=== PATIENT | female | born 1980 | race Caucasian/White ===

== ENCOUNTER 2017-12-20 18:37 | Observation (INO) ==
[2017-12-20] MEDS ORDERED: Isovue-370 500 ML INFUS..BTL IV ONE (19:22)
[2017-12-20 19:31] LABS: Bilirubin,Urine Negative (Negative); Blood,Urine Negative (Negative); Clarity,Urine Clear (Clear); Color,Urine Yellow (Yellow); Glucose,Urine (UA) Normal (Normal); Ketones,Urine Negative (Negative); Leukocyte Esterase,Urine Negative (Negative); Nitrite,Urine Negative (Negative); PH,Urine 5.5 pH Units (5.0-8.0); Protein,Urine Trace mg/dL (Neg-Trace); Specific Gravity,Urine > 1.030 (1.010-1.025); Urobilinogen,Urine Normal (Normal)
[2017-12-20 19:33] LABS: Bacteria,Urine Few per hpf (None-Few); Hyaline Casts,Urine None Seen per lpf (None-Few); RBC,Urine 0-3 per hpf (0-3); Squamous Epithelial Cell,Urine Many per lpf (None-Few)
[2017-12-20 19:40] LABS: Basophils % 0.3 %; Eosinophils # 0.2 K/mcL (0.0-0.6); Eosinophils % 1.4 %; Hematocrit 36.5 % (35.3-44.9); Hemoglobin 12.6 g/dL (11.5-15.4); Immature Granulocytes % 0.5 % (0-4); Lymphocytes % 18.2 %; Mean Corpuscular HGB Conc 34.5 g/dL (31.6-35.5); Mean Corpuscular Volume 86.9 fL (83.0-100.0); Mean Platelet Volume 10.9 fL (9.4-12.4); Monocytes # 0.8 K/mcL (0.0-1.3); Platelet Count 197 K/mcL (140-400); Red Cell Distribution Width 13.2 % (11.5-14.5); Segmented Neutrophils % 72.6 %
[2017-12-20] MEDS ORDERED: GI Cocktail 40 ML EACH PO ONE (19:51)
--- NOTE | 2017-12-20 19:51 | Emergency Department Note ---
Disposition Clinical Impression: Abdominal pain Qualifiers: Abdominal location: periumbilical Qualified Code(s): R10.33 - Periumbilical pain Disposition: Still a Patient Referrals: Jodie Gifford CNP [Primary Care Provider] - General Adult HPI - General Chief complaint: ED Abdominal Pain Stated complaint: ABD PAIN Time Seen by Provider: 12/20/17 18:53 Source: patient Limitations: no limitations - History of Present Illness Pain Scale: 10 - Related Data Home Medications Medication Instructions Recorded Confirmed Keflex 12/20/17 Omeprazole 12/20/17 Tramadol HCl 12/20/17 Zyrtec 12/20/17 Previous Rx's Medication Instructions Recorded SUMAtriptan succinate [Imitrex] 25 mg PO ONCE #5 tablet 10/06/17 Omeprazole 20 mg PO BID #20 tablet. 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 MACHINE TENDER history - Social History Smoking Status: Never smoker Smokeless Tobacco Status: No Alcohol use: Reports: none Drug use: Reports: none Physical Exam - General Limitations: no limitations General appearance: alert, in no apparent distress Course Vital Signs Temperature 98 F 12/20/17 18:47 Pulse Rate 88 12/20/17 18:47 Respiratory Rate 16 12/20/17 18:47 Blood Pressure 130/84 12/20/17 18:47 O2 Sat by Pulse Oximetry 98 12/20/17 18:47 Temperature 98 F 12/20/17 19:17 Pulse Rate 83 12/20/17 19:17 Respiratory Rate 16 12/20/17 19:17 Blood Pressure 122/87 12/20/17 19:17 O2 Sat by Pulse Oximetry 98 12/20/17 19:17 Oxygen Delivery Oxygen Delivery Room Air Medical Decision Making - Lab Data Result diagrams: 12/20/17 19:22 Lab Results 12/20/17 12/20/17 12/20/17 Range/Units 19:20 19:20 19:22 WBC 11.1 (4.3-11.1) K/mcL RBC 4.20 (3.82-4.97) M/mcL Hgb 12.6 (11.5-15.4) g/dL Hct 36.5 (35.3-44.9) % MCV 86.9 (83.0-100.0) fL MCH 30.0 (28.0-33.3) pg MCHC 34.5 (31.6-35.5) g/dL RDW 13.2 (11.5-14.5) % Plt Count 197 (140-400) K/mcL MPV 10.9 (9.4-12.4) fL Immature Gran % 0.5 (0-4) % Seg Neutrophils % 72.6 % Lymphocytes % 18.2 % Monocytes % 7.0 % Eosinophils % 1.4 % Basophils % 0.3 % Neutrophils # 8.0 (1.6-8.9) K/mcL Lymphocytes # 2.0 (0.6-4.6) K/mcL Monocytes # 0.8 (0.0-1.3) K/mcL Eosinophils # 0.2 (0.0-0.6) K/mcL Basophils # 0.0 (0.0-0.2) K/mcL Urine Color Yellow (Yellow) Urine Clarity Clear (Clear) Urine pH 5.5 (5.0-8.0) pH Units Ur Specific [place] > 1.030 H (1.010-1.025) Urine Protein Trace (Neg-Trace) mg/dL Urine Glucose (UA) Normal (Normal) mg/dL Urine Ketones Negative (Negative) mg/dL Urine Blood Negative (Negative) Urine Nitrite Negative (Negative) Urine Bilirubin Negative (Negative) Urine Urobilinogen Normal (Normal) mg/dL Ur Leukocyte Esterase Negative (Negative) Urine Microscopic RBC 0-3 (0-3) per hpf Urine Microscopic WBC 5-15 H (0-3) per hpf Ur Squamous Epith Cells Many H (None-Few) per lpf Urine Bacteria Few (None-Few) per hpf Hyaline Casts None Seen (None-Few) per lpf Ur Culture Indicated? NO (NO) Urine Test Negative (Negative) Attestation Statement - Attestation Attestation: I examined this patient and my medical decision-making was reviewed with the Resident Physician. I agree with the documented findings, disposition and treatment plan as described except to the extent set forth below. 37 year old female presents to the ED with complaints of abdominal pain and states that it is epigastric and umbilical in nature. Nitza states that it is otherwise nonradiating and is associated iwth nausea. She was originally seen at urgent care and treated with a GI cocktail and it helped for a little while and now it is back. Nitza denies vomtting or fevers or pain with uriantion. No chest pain or shortness of breath. We will continue workup with labs and ABCT and GI cocktail for therapy. Mutliplt eabodminla surgeries and concern for SBO but no peritoneal signs on exam. Nitza is nontoxic appearing with stable vitals.
[2017-12-20 19:54] LABS: Alanine Aminotransferase 31 Units/L (7-52); Albumin 4.2 g/dL (3.5-5.7); Albumin/Globulin Ratio 1.8 (1.1-2.2); Alkaline Phosphatase 37 Units/L (34-104); Amylase 31 Units/L (29-103); Aspartate Amino Transferase 20 Units/L (13-39); BUN/Creatinine Ratio 12 (6-26); Bilirubin,Direct 0.1 mg/dL (0.0-0.2); Bilirubin,Indirect 0.2 mg/dL (0.0-1.2); Bilirubin,Total 0.3 mg/dL (0.3-1.0); Blood Urea Nitrogen 10 mg/dL (6-20); Calcium 9.3 mg/dL (8.6-10.3); Carbon Dioxide 19 mEq/L (23-29); Chloride 109 mEq/L (98-107); Globulin 2.3 g/dL (2.4-3.5); Glucose 138 mg/dL (70-105); Lipase 12 Units/L (11-82); Osmolality,Calculated 289 (280-300); Potassium 3.8 mEq/L (3.5-5.1); Sodium 139 mEq/L (136-145); Total Protein 6.5 g/dL (6.4-8.9); eGFR For Non-African Americans > 60 (> 60)
--- NOTE | 2017-12-20 20:04 | Emergency Department Note ---
Disposition Clinical Impression: Abdominal pain Qualifiers: Abdominal location: periumbilical Qualified Code(s): R10.33 - Periumbilical pain Disposition: Still a Patient Referrals: Jodie Gifford CNP [Primary Care Provider] - Forms: ED Satisfaction Letter, Work/School Release Abdominal Pain HPI - General Chief Complaint: ED Abdominal Pain Stated Complaint: ABD PAIN Time Seen by Provider: 12/20/17 18:53 Source: patient Mode of arrival: private vehicle Limitations: no limitations Vital Signs Reviewed: Yes - History of Present Illness HPI Narrative: 37 yo F that presents with 4 days of abd pain that is intermittently both cramping and sharp in nature that doesn't radiate and in central abdominal. She admits to Nausea but denies Vomit, diarrhea and changes to her bowel or bladder. She is on 7/10 days of keflex for sinusitis. She denies fevers, chills , syncopal symptoms. Pain Scale: 10 - Related Data Home Medications Medication Instructions Recorded Confirmed Keflex 12/20/17 Omeprazole 12/20/17 Tramadol HCl 12/20/17 Zyrtec 12/20/17 Previous Rx's Medication Instructions Recorded SUMAtriptan succinate [Imitrex] 25 mg PO ONCE #5 tablet 10/06/17 Omeprazole 20 mg PO BID #20 tablet. 12/20/17 Ondansetron [Zofran] 8 mg PO Q8HR #12 tablet 12/20/17 Allergies Allergy/AdvReac Type Severity Reaction Status Date / Time clavulanic acid Allergy Rash Verified 12/20/17 17:34 [From Augmentin] Constitutional: Denies: fever, chills, weakness Cardiovascular: Denies: chest pain, palpitations, dyspnea on exertion, syncope Respiratory: Denies: cough, dyspnea Gastrointestinal: Reports: abdominal pain, nausea. Denies: vomiting, diarrhea Genitourinary: Denies: urgency, dysuria, frequency, hematuria Neurological: Denies: headache, weakness Endocrine: Denies: fatigue Abdominal Pain PMH - Past Medical History Medical history: Reports: non-contributory Female Surgical History: Reports: appendectomy, cholecystectomy SALESPERSON FURNITURE history: Reports: no SALESPERSON FURNITURE history Psychiatric history: Reports: no psych history - Social History Smoking status: Never smoker Alcohol use: Reports: none Drug use: Reports: none Physical Exam - General Limitations: no limitations General appearance: alert, in no apparent distress Course Vital Signs Temperature 98 F 12/20/17 18:47 Pulse Rate 88 12/20/17 18:47 Respiratory Rate 16 12/20/17 18:47 Blood Pressure 130/84 12/20/17 18:47 O2 Sat by Pulse Oximetry 98 12/20/17 18:47 Temperature 98 F 12/20/17 19:17 Pulse Rate 83 12/20/17 19:17 Respiratory Rate 16 12/20/17 19:17 Blood Pressure 122/87 12/20/17 19:17 O2 Sat by Pulse Oximetry 98 12/20/17 19:17 Oxygen Delivery Oxygen Delivery Room Air Abdominal Pain - Lab Data Result diagrams: 12/20/17 19:22 12/20/17 19:22 Lab Results 12/20/17 12/20/17 12/20/17 Range/Units 19:20 19:20 19:22 WBC 11.1 (4.3-11.1) K/mcL RBC 4.20 (3.82-4.97) M/mcL Hgb 12.6 (11.5-15.4) g/dL Hct 36.5 (35.3-44.9) % MCV 86.9 (83.0-100.0) fL MCH 30.0 (28.0-33.3) pg MCHC 34.5 (31.6-35.5) g/dL RDW 13.2 (11.5-14.5) % Plt Count 197 (140-400) K/mcL MPV 10.9 (9.4-12.4) fL Immature Gran % 0.5 (0-4) % Seg Neutrophils % 72.6 % Lymphocytes % 18.2 % Monocytes % 7.0 % Eosinophils % 1.4 % Basophils % 0.3 % Neutrophils # 8.0 (1.6-8.9) K/mcL Lymphocytes # 2.0 (0.6-4.6) K/mcL Monocytes # 0.8 (0.0-1.3) K/mcL Eosinophils # 0.2 (0.0-0.6) K/mcL Basophils # 0.0 (0.0-0.2) K/mcL Sodium (136-145) mEq/L Potassium (3.5-5.1) mEq/L Chloride (98-107) mEq/L Carbon Dioxide (23-29) mEq/L BUN (6-20) mg/dL Creatinine (0.60-1.20) mg/dL Est GFR ( Amer) (> 60) Est GFR (Non-Af Amer) (> 60) BUN/Creatinine Ratio (6-26) Glucose (70-105) mg/dL Calculated Osmolality (280-300) Calcium (8.6-10.3) mg/dL Total Bilirubin (0.3-1.0) mg/dL Direct Bilirubin (0.0-0.2) mg/dL Indirect Bilirubin (0.0-1.2) mg/dL AST (13-39) Units/L ALT (7-52) Units/L Alkaline Phosphatase (34-104) Units/L Serum Total Protein (6.4-8.9) g/dL Albumin (3.5-5.7) g/dL Globulin (2.4-3.5) g/dL Albumin/Globulin Ratio (1.1-2.2) Amylase (29-103) Units/L Lipase (11-82) Units/L Urine Color Yellow (Yellow) Urine Clarity Clear (Clear) Urine pH 5.5 (5.0-8.0) pH Units Ur Specific [place] > 1.030 H (1.010-1.025) Urine Protein Trace (Neg-Trace) mg/dL Urine Glucose (UA) Normal (Normal) mg/dL Urine Ketones Negative (Negative) mg/dL Urine Blood Negative (Negative) Urine Nitrite Negative (Negative) Urine Bilirubin Negative (Negative) Urine Urobilinogen Normal (Normal) mg/dL Ur Leukocyte Esterase Negative (Negative) Urine Microscopic RBC 0-3 (0-3) per hpf Urine Microscopic WBC 5-15 H (0-3) per hpf Ur Squamous Epith Cells Many H (None-Few) per lpf Urine Bacteria Few (None-Few) per hpf Hyaline Casts None Seen (None-Few) per lpf Ur Culture Indicated? NO (NO) Urine Test Negative (Negative) 12/20/17 Range/Units 19:22 WBC (4.3-11.1) K/mcL RBC (3.82-4.97) M/mcL Hgb (11.5-15.4) g/dL Hct (35.3-44.9) % MCV (83.0-100.0) fL MCH (28.0-33.3) pg MCHC (31.6-35.5) g/dL RDW (11.5-14.5) % Plt Count (140-400) K/mcL MPV (9.4-12.4) fL Immature Gran % (0-4) % Seg Neutrophils % % Lymphocytes % % Monocytes % % Eosinophils % % Basophils % % Neutrophils # (1.6-8.9) K/mcL Lymphocytes # (0.6-4.6) K/mcL Monocytes # (0.0-1.3) K/mcL Eosinophils # (0.0-0.6) K/mcL Basophils # (0.0-0.2) K/mcL Sodium 139 (136-145) mEq/L Potassium 3.8 (3.5-5.1) mEq/L Chloride 109 H (98-107) mEq/L Carbon Dioxide 19 L (23-29) mEq/L BUN 10 (6-20) mg/dL Creatinine 0.83 (0.60-1.20) mg/dL Est GFR ( Amer) > 60 (> 60) Est GFR (Non-Af Amer) > 60 (> 60) BUN/Creatinine Ratio 12 (6-26) Glucose 138 H (70-105) mg/dL Calculated Osmolality 289 (280-300) Calcium 9.3 (8.6-10.3) mg/dL Total Bilirubin 0.3 (0.3-1.0) mg/dL Direct Bilirubin 0.1 (0.0-0.2) mg/dL Indirect Bilirubin 0.2 (0.0-1.2) mg/dL AST 20 (13-39) Units/L ALT 31 (7-52) Units/L Alkaline Phosphatase 37 (34-104) Units/L Serum Total Protein 6.5 (6.4-8.9) g/dL Albumin 4.2 (3.5-5.7) g/dL Globulin 2.3 L (2.4-3.5) g/dL Albumin/Globulin Ratio 1.8 (1.1-2.2) Amylase 31 (29-103) Units/L Lipase 12 (11-82) Units/L Urine Color (Yellow) Urine Clarity (Clear) Urine pH (5.0-8.0) pH Units Ur Specific [place] (1.010-1.025) Urine Protein (Neg-Trace) mg/dL Urine Glucose (UA) (Normal) mg/dL Urine Ketones (Negative) mg/dL Urine Blood (Negative) Urine Nitrite (Negative) Urine Bilirubin (Negative) Urine Urobilinogen (Normal) mg/dL Ur Leukocyte Esterase (Negative) Urine Microscopic RBC (0-3) per hpf Urine Microscopic WBC (0-3) per hpf Ur Squamous Epith Cells (None-Few) per lpf Urine Bacteria (None-Few) per hpf Hyaline Casts (None-Few) per lpf Ur Culture Indicated? (NO) Urine Test (Negative)
--- NOTE | 2017-12-20 20:36 | Emergency Department Note ---
Disposition Clinical Impression: Acute appendicitis Disposition: Admitted As Inpatient Condition: Fair Referrals: Jodie Gifford CNP [Primary Care Provider] - Forms: ED Satisfaction Letter, Work/School Release Time of Disposition: 21:43 Abdominal Pain HPI - General Chief Complaint: ED Abdominal Pain Stated Complaint: ABD PAIN Time Seen by Provider: 12/20/17 18:53 Source: patient Mode of arrival: private vehicle Limitations: no limitations Nursing Notes Reviewed: Yes Vital Signs Reviewed: Yes - History of Present Illness HPI Narrative: Ms. Valdez is a 37-year-old female that presents to the ED for abdominal pain times 4 days. She states his pain has been consistent over the course. Describes pain as a cramping, burning pain with occasional sharp pains; located in central abdominal superior to umbilicus. No history of hernias. Does have history of GERD or which she takes omeprazole. Has also taken rolaids and motrin without relief. Nothing makes pain better, palpation makes pain worse. No recent travel, no new or raw foods, no sick contacts. Notes some intermittent dizziness. Denies vomiting, fevers, dysuria, hematuria, diarrhea. History of appendectomy and choleocystectomy approx 7 years ago. Does note uteran injury in [place] form IUD, pending US on 01/05/18. Pain Scale: 10 - Related Data Home Medications Medication Instructions Recorded Confirmed Keflex 12/20/17 Omeprazole 12/20/17 Tramadol HCl 12/20/17 Zyrtec 12/20/17 Previous Rx's Medication Instructions Recorded SUMAtriptan succinate [Imitrex] 25 mg PO ONCE #5 tablet 10/06/17 Omeprazole 20 mg PO BID #20 tablet. 12/20/17 Ondansetron [Zofran] 8 mg PO Q8HR #12 tablet 12/20/17 Allergies Allergy/AdvReac Type Severity Reaction Status Date / Time clavulanic acid Allergy Rash Verified 12/20/17 17:34 [From Augmentin] All systems ED: reviewed and negative except as stated. Review of Systems: As Per HPI Constitutional: Denies: fever, chills, weakness Cardiovascular: Denies: chest pain, palpitations, dyspnea on exertion, syncope Respiratory: Denies: cough, dyspnea Gastrointestinal: Reports: abdominal pain, nausea. Denies: vomiting, diarrhea Genitourinary: Denies: urgency, dysuria, frequency, hematuria Musculoskeletal: Denies: back pain Neurological: Reports: vertigo. 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 Absent: scleral icterus, conjunctival injection - ENT ENT exam: normal exam, normal oropharynx, mucous membranes moist - Neck Neck exam: Present: normal inspection, full ROM. Absent: tenderness - Chest Chest inspection: Present: normal inspection, symmetric chest wall rise - Respiratory Respiratory exam: Present: normal lung sounds bilaterally. Absent: respiratory distress, wheezes, accessory muscle use - Cardiovascular Cardiovascular exam: Present: regular rate, normal rhythm, +S1, +S2. Absent: systolic murmur, diastolic murmur - Abdominal Exam Abdominal exam: Present: soft, tenderness (epigastric and central abdominal pain with palpation.). Absent: distention, guarding, rebound - Extremities Exam Extremities exam: Present: normal inspection, full ROM. Absent: tenderness, pedal edema - Back Exam Back exam: Present: normal inspection. Absent: CVA tenderness (R), CVA tenderness (L) - Neurological Exam Neurological exam: Present: alert, oriented X3 - Psychiatric Psychiatric exam: Present: normal affect, normal mood - Skin Skin exam: Present: warm, dry, intact, normal color Course - Consultations Consultation #1: Discussed case with surgeon spoon maker, Dr. Schulte, who accepted patient for admission. Time: 21:40 Vital Signs Temperature 98 F 12/20/17 18:47 Pulse Rate 88 12/20/17 18:47 Respiratory Rate 16 12/20/17 18:47 Blood Pressure 130/84 12/20/17 18:47 O2 Sat by Pulse Oximetry 98 12/20/17 18:47 Temperature 98 F 12/20/17 19:17 Pulse Rate 89 12/20/17 20:59 Respiratory Rate 18 12/20/17 20:59 Blood Pressure 135/92 12/20/17 20:59 O2 Sat by Pulse Oximetry 99 12/20/17 20:59 Oxygen Delivery Oxygen Delivery Room Air Abdominal Pain - MDM Narrative Medical decision making narrative: Patient well appearing, nontoxic. Vitals stable. Will check UA, labs, and abd/ pelvic CT. Labs unremarkable, UA negative. CT abd/pelvis positive for acute appendicitis of the appendix stump. Case discussed with Dr. Schulte wo accepted patient for admission. - Differential Diagnosis Differential Diagnosis: Likely: acute appendicitis, gastroenteritis, hernia, , small bowel obstruction - Lab Data Lab results reviewed: Yes I reviewed the patient's lab results. Result diagrams: 12/20/17 19:22 12/20/17 19:22 Lab Results 12/20/17 12/20/17 12/20/17 Range/Units 19:20 19:20 19:22 WBC 11.1 (4.3-11.1) K/mcL RBC 4.20 (3.82-4.97) M/mcL Hgb 12.6 (11.5-15.4) g/dL Hct 36.5 (35.3-44.9) % MCV 86.9 (83.0-100.0) fL MCH 30.0 (28.0-33.3) pg MCHC 34.5 (31.6-35.5) g/dL RDW 13.2 (11.5-14.5) % Plt Count 197 (140-400) K/mcL MPV 10.9 (9.4-12.4) fL Immature Gran % 0.5 (0-4) % Seg Neutrophils % 72.6 % Lymphocytes % 18.2 % Monocytes % 7.0 % Eosinophils % 1.4 % Basophils % 0.3 % Neutrophils # 8.0 (1.6-8.9) K/mcL Lymphocytes # 2.0 (0.6-4.6) K/mcL Monocytes # 0.8 (0.0-1.3) K/mcL Eosinophils # 0.2 (0.0-0.6) K/mcL Basophils # 0.0 (0.0-0.2) K/mcL Sodium (136-145) mEq/L Potassium (3.5-5.1) mEq/L Chloride (98-107) mEq/L Carbon Dioxide (23-29) mEq/L BUN (6-20) mg/dL Creatinine (0.60-1.20) mg/dL Est GFR ( Amer) (> 60) Est GFR (Non-Af Amer) (> 60) BUN/Creatinine Ratio (6-26) Glucose (70-105) mg/dL Calculated Osmolality (280-300) Calcium (8.6-10.3) mg/dL Total Bilirubin (0.3-1.0) mg/dL Direct Bilirubin (0.0-0.2) mg/dL Indirect Bilirubin (0.0-1.2) mg/dL AST (13-39) Units/L ALT (7-52) Units/L Alkaline Phosphatase (34-104) Units/L Serum Total Protein (6.4-8.9) g/dL Albumin (3.5-5.7) g/dL Globulin (2.4-3.5) g/dL Albumin/Globulin Ratio (1.1-2.2) Amylase (29-103) Units/L Lipase (11-82) Units/L Urine Color Yellow (Yellow) Urine Clarity Clear (Clear) Urine pH 5.5 (5.0-8.0) pH Units Ur Specific [place] > 1.030 H (1.010-1.025) Urine Protein Trace (Neg-Trace) mg/dL Urine Glucose (UA) Normal (Normal) mg/dL Urine Ketones Negative (Negative) mg/dL Urine Blood Negative (Negative) Urine Nitrite Negative (Negative) Urine Bilirubin Negative (Negative) Urine Urobilinogen Normal (Normal) mg/dL Ur Leukocyte Esterase Negative (Negative) Urine Microscopic RBC 0-3 (0-3) per hpf Urine Microscopic WBC 5-15 H (0-3) per hpf Ur Squamous Epith Cells Many H (None-Few) per lpf Urine Bacteria Few (None-Few) per hpf Hyaline Casts None Seen (None-Few) per lpf Ur Culture Indicated? NO (NO) Urine Test Negative (Negative) 12/20/17 Range/Units 19:22 WBC (4.3-11.1) K/mcL RBC (3.82-4.97) M/mcL Hgb (11.5-15.4) g/dL Hct (35.3-44.9) % MCV (83.0-100.0) fL MCH (28.0-33.3) pg MCHC (31.6-35.5) g/dL RDW (11.5-14.5) % Plt Count (140-400) K/mcL MPV (9.4-12.4) fL Immature Gran % (0-4) % Seg Neutrophils % % Lymphocytes % % Monocytes % % Eosinophils % % Basophils % % Neutrophils # (1.6-8.9) K/mcL Lymphocytes # (0.6-4.6) K/mcL Monocytes # (0.0-1.3) K/mcL Eosinophils # (0.0-0.6) K/mcL Basophils # (0.0-0.2) K/mcL Sodium 139 (136-145) mEq/L Potassium 3.8 (3.5-5.1) mEq/L Chloride 109 H (98-107) mEq/L Carbon Dioxide 19 L (23-29) mEq/L BUN 10 (6-20) mg/dL Creatinine 0.83 (0.60-1.20) mg/dL Est GFR ( Amer) > 60 (> 60) Est GFR (Non-Af Amer) > 60 (> 60) BUN/Creatinine Ratio 12 (6-26) Glucose 138 H (70-105) mg/dL Calculated Osmolality 289 (280-300) Calcium 9.3 (8.6-10.3) mg/dL Total Bilirubin 0.3 (0.3-1.0) mg/dL Direct Bilirubin 0.1 (0.0-0.2) mg/dL Indirect Bilirubin 0.2 (0.0-1.2) mg/dL AST 20 (13-39) Units/L ALT 31 (7-52) Units/L Alkaline Phosphatase 37 (34-104) Units/L Serum Total Protein 6.5 (6.4-8.9) g/dL Albumin 4.2 (3.5-5.7) g/dL Globulin 2.3 L (2.4-3.5) g/dL Albumin/Globulin Ratio 1.8 (1.1-2.2) Amylase 31 (29-103) Units/L Lipase 12 (11-82) Units/L Urine Color (Yellow) Urine Clarity (Clear) Urine pH (5.0-8.0) pH Units Ur Specific [place] (1.010-1.025) Urine Protein (Neg-Trace) mg/dL Urine Glucose (UA) (Normal) mg/dL Urine Ketones (Negative) mg/dL Urine Blood (Negative) Urine Nitrite (Negative) Urine Bilirubin (Negative) Urine Urobilinogen (Normal) mg/dL Ur Leukocyte Esterase (Negative) Urine Microscopic RBC (0-3) per hpf Urine Microscopic WBC (0-3) per hpf Ur Squamous Epith Cells (None-Few) per lpf Urine Bacteria (None-Few) per hpf Hyaline Casts (None-Few) per lpf Ur Culture Indicated? (NO) Urine Test (Negative) - Radiology Data Radiology results reviewed: Yes I reviewed the patient's radiology results.
[2017-12-20] MEDS ORDERED: *HR* Promethazine 25 MG/ML VIAL IVP PRN (23:45)
[2017-12-20] MEDS ORDERED: Ondansetron 4 MG/2 ML VIAL IVP PRN (23:45)
[2017-12-20] MEDS ORDERED: Naloxone 0.4 MG/ML INJ IVP PRN (23:45)
[2017-12-20] MEDS ORDERED: Morphine Oral CONC 5 MG/0.25 ML ORAL.SYG PO PRN (23:47)
[2017-12-21] MEDS ORDERED: MORPHINE SUL Oral CONC 10 MG/0.5 ML ORAL.SYG PO PRN ×2 (00:30→16:47)
[2017-12-21] MEDS: MORPHINE SUL Oral CONC 10 MG/0.5 ML ORAL.SYG PO PRN ×4 (00:46→23:42)
[2017-12-21] MEDS: Piperacillin/Tazobactam 3.375 GM in 0.9 % Sodium Chloride Mini Bag 100 ML IVPB SCH ×3 (00:50→23:41)
[2017-12-21] MEDS: 0.9 % Sodium Chloride 1,000 ML IVC SCH ×3 (00:50→19:40)
[2017-12-21] MEDS ORDERED: *HR* Heparin 5,000 UNIT/ML VIAL SQ SCH (06:00)
[2017-12-21 06:13] LABS: Basophils % 0.3 %; Eosinophils # 0.2 K/mcL (0.0-0.6); Eosinophils % 1.5 %; Hematocrit 35.1 % (35.3-44.9); Hemoglobin 11.8 g/dL (11.5-15.4); Immature Granulocytes % 0.3 % (0-4); Lymphocytes # 2.1 K/mcL (0.6-4.6); Lymphocytes % 21.4 %; Mean Corpuscular HGB Conc 33.6 g/dL (31.6-35.5); Mean Corpuscular Hemoglobin 29.5 pg (28.0-33.3); Mean Corpuscular Volume 87.8 fL (83.0-100.0); Mean Platelet Volume 10.9 fL (9.4-12.4); Monocytes # 0.7 K/mcL (0.0-1.3); Neutrophils # 6.8 K/mcL (1.6-8.9); Platelet Count 184 K/mcL (140-400); Red Cell Distribution Width 13.2 % (11.5-14.5); Segmented Neutrophils % 69.5 %
[2017-12-21 06:36] LABS: BUN/Creatinine Ratio 10 (6-26); Blood Urea Nitrogen 8 mg/dL (6-20); Calcium 8.5 mg/dL (8.6-10.3); Carbon Dioxide 20 mEq/L (23-29); Chloride 109 mEq/L (98-107); Glucose 112 mg/dL (70-105); Osmolality,Calculated 285 (280-300); Potassium 3.4 mEq/L (3.5-5.1); Sodium 138 mEq/L (136-145); eGFR For Non-African Americans > 60 (> 60)
[2017-12-21] MEDS ORDERED: Pantoprazole 40 MG VIAL IVP SCH (09:00)
--- NOTE | 2017-12-21 09:50 | General Surg History&Physical ---
<Roebrt Hooks R - Last Filed: 12/21/17 09:42> Date of Encounter: 12/21/17 Time of Encounter: 08:30 Assessment and Plan (1) Acute appendicitis Status: Acute The assessment and plan as outlined above was discussed with the patient and/or family members who expressed understanding and agreement. All questions were answered. Patient was seen and evaluated at the bed side. Non-toxic in appearance, in no distress. CT abdomen findings consistent stump appendicitis Plan: NPO IV fluids Comfort care and pain management Antibiotics -Zosyn Plan for laparoscopic appendectomy today. Procedure was discussed with the patient at bedside and all questions answered. Risks and benefits were discussed. Patient would like to proceed with plan. Incentive spirometry Ambulate hallways TID with assistance prn antiemetic Consent signed and placed in hard chart Qualifiers: Acute appendicitis type: unspecified acute appendicitis type Qualified Code (s): K35.80 - Unspecified acute appendicitis (2) DVT prophylaxis Status: Acute The assessment and plan as outlined above was discussed with the patient and/or family members who expressed understanding and agreement. All questions were answered. Heparin EPCD's Ambulate TID History of Present Illness Chief complaint: abdominal pain HPI: Ms. Valdez is a 37 year old female with a history of Migraine headaches and GERD, presented to the ED overnight complaining of 4 days of abdominal pain. Pain is sharp and burning in quality, has been consistent. She was evaluated in the urgent center and was treated with a GI cocktail, which provided only temporary relief. Pain is centered around her umbilicus, does not radiate. Associated anorexia and nausea without vomiting. Denies fever, change in bowel habits, hematochezia, melena, hematemesis. CT of the abdomen was performed in the ED with findings consistent with stump appendicitis. She is able to ambulate and void without issue, denies urinary symptoms. Pain is currently controlled with medication. Prior abdominal surgeries include laparoscopic appendectomy and cholecystectomy. NPO since yesterday. Past Med Surg Social Fam HX - Past Medical History Medical history: non-contributory Psychiatric history: no psych history - Past Surgical History Surgical History: appendectomy, cholecystectomy - Social History Smoking Status: Never smoker Smokeless Tobacco Status: No Alcohol use: none Drug use: none Medications and Allergies Cetirizine HCl [Zyrtec] 10 mg PO DAILY 12/21/17 [History] EPINEPHrine [Epipen] 0.3 mg IM ONCE PRN 12/21/17 [History] Meloxicam [Mobic] 15 mg PO DAILY 12/21/17 [History] Montelukast [Singulair] 10 mg PO DAILY 12/21/17 [History] Norgestimate-Ethinyl Estradiol [Sprintec 28 Day Tablet] 1 tab PO DAILY 12/21/17 [History] Omeprazole [PriLOSEC] 40 mg PO DAILY 12/21/17 [History] Promethazine [Phenergan] 25 mg PO Q12H PRN 12/21/17 [History] SUMAtriptan succinate [Imitrex] 50 mg PO Q2H PRN 12/21/17 [History] Topiramate [Topamax] 50 mg PO BID 12/21/17 [History] Docusate [Colace] 100 mg PO BID #30 capsule 12/23/17 [Rx] Ibuprofen [Motrin] 800 mg PO Q8HR #50 tablet 12/23/17 [Rx] OxyCODONE/APAP 5/325 [Percocet 5/325 MG] 1 each PO Q4HR PRN 5 Days #20 tablet [Rx] 3 Allergy/AdvReac Type Severity Reaction Status Date / Time clavulanic acid Allergy Rash Verified 12/20/17 17:34 [From Augmentin] Review of Systems All systems PM: The remainder of the systems were reviewed and are negative - Constitutional no chills, no fever(s) - EENT Nose, mouth and throat: no dysphagia, no odynophagia - Cardiovascular no chest pain - Respiratory no cough, no dyspnea - Gastrointestinal abdominal pain, nausea, other (loss of appetite), no change in bowel habits, no constipation, no diarrhea, no hematemesis, no melena, no vomiting - Genitourinary Genitourinary: no dysuria, no urinary frequency General Surgery Exam Initial Vital Signs Temp Pulse Resp BP Pulse Ox 98 F 88 16 130/84 98 12/20/17 18:47 12/20/17 18:47 12/20/17 18:47 12/20/17 18:47 12/20/17 18:47 - General physical appearance well developed, well nourished, no distress, obese, other (mild pain) - Eyes PERRL, normal ocular movement - ENT normal mucosa, no congestion, atraumatic, normocephalic - Neck no masses, trachea midline, no venous distension - Respiratory normal expansion, clear to auscultation - Cardiovascular Cardiovascular exam: Present: RRR, no murmurs/rubs/gallops - Abdomen Abdomen general surgery: Present: bowel sounds present, soft, tender, surgical scars (well healed laparoscopy scars). Absent: distended, guarding, rebound Abdominal Tenderness: Present: epigastic, RLQ - Integumentary Integumentary general surgery: Present: warm and dry - Neurologic Present: CN 2-12 grossly intact - Musculoskeletal Present: normal gait, normal posture - Psychiatric Psychiatric general surgery: Present: A&Ox3, speech is normal, memory intact Results - Labs 12/21/17 05:48 12/21/17 05:48 Abnormal lab results Hct 35.1 % (35.3-44.9) L 12/21/17 05:48 Potassium 3.4 mEq/L (3.5-5.1) L 12/21/17 05:48 Chloride 109 mEq/L (98-107) H 12/21/17 05:48 Carbon Dioxide 20 mEq/L (23-29) L 12/21/17 05:48 Glucose 112 mg/dL (70-105) H 12/21/17 05:48 POC Glucose 112 mg/dL (70-99) H 12/21/17 05:12 Calcium 8.5 mg/dL (8.6-10.3) L 12/21/17 05:48 Globulin 2.3 g/dL (2.4-3.5) L 12/20/17 19:22 Ur Specific [place] > 1.030 (1.010-1.025) H 12/20/17 19:20 Urine Microscopic WBC 5-15 per hpf (0-3) H 12/20/17 19:20 Ur Squamous Epith Cells Many per lpf (None-Few) H 12/20/17 19:20 Diabetes panel 12/21/17 Range/Units 05:48 Sodium 138 (136-145) mEq/L Potassium 3.4 L (3.5-5.1) mEq/L Chloride 109 H (98-107) mEq/L Carbon Dioxide 20 L (23-29) mEq/L BUN 8 (6-20) mg/dL Creatinine 0.79 (0.60-1.20) mg/dL Glucose 112 H (70-105) mg/dL Calcium 8.5 L (8.6-10.3) mg/dL Calcium panel 12/21/17 Range/Units 05:48 Calcium 8.5 L (8.6-10.3) mg/dL Pituitary panel 12/21/17 Range/Units 05:48 Sodium 138 (136-145) mEq/L Potassium 3.4 L (3.5-5.1) mEq/L Chloride 109 H (98-107) mEq/L Carbon Dioxide 20 L (23-29) mEq/L BUN 8 (6-20) mg/dL Creatinine 0.79 (0.60-1.20) mg/dL Glucose 112 H (70-105) mg/dL Calcium 8.5 L (8.6-10.3) mg/dL Adrenal panel 12/21/17 Range/Units 05:48 Sodium 138 (136-145) mEq/L Potassium 3.4 L (3.5-5.1) mEq/L Chloride 109 H (98-107) mEq/L Carbon Dioxide 20 L (23-29) mEq/L BUN 8 (6-20) mg/dL Creatinine 0.79 (0.60-1.20) mg/dL Glucose 112 H (70-105) mg/dL Calcium 8.5 L (8.6-10.3) mg/dL All other labs normal. <Zoie Schulte - Last Filed: 12/23/17 18:17> Date of Encounter: 12/21/17 Assessment and Plan (1) Acute appendicitis Status: Resolved The assessment and plan as outlined above was discussed with the patient and/or family members who expressed understanding and agreement. All questions were answered. Discussed with the patient CT findings, history of laparoscopic appendectomy, lab work, physical exam. Per the CT she has a acute stump appendicitis. We will plan a laparoscopic appendectomy possible open, risks and benefits have been discussed with the patient and she wishes to proceed Nothing by mouth IV fluid hydration Antibiotics When necessary pain control When necessary antibiotics Qualifiers: Acute appendicitis type: unspecified acute appendicitis type Qualified Code (s): K35.80 - Unspecified acute appendicitis (2) Morbid obesity with BMI of 45.0-49.9, adult Status: Chronic The assessment and plan as outlined above was discussed with the patient and/or family members who expressed understanding and agreement. All questions were answered. History of Present Illness HPI: Ms. Valdez is a 37 year old female he states she has a 30 previously gone a laparoscopic appendectomy about 7-8 years ago here at [facility]. She has been having right lower quadrant and mid abdominal pain for the last few days. The pain is been sharp. She has also been having nausea and vomiting. No fevers, chills, night sweats. She denies any issues with diarrhea. She presented to the ED where a CT scan was done showing acute appendiceal stump appendicitis Past Med Surg Social Fam HX - Past Medical History Source: patient Medical history: other (Seasonal allergies, GERD, migraines) - Past Surgical History Surgical History: appendectomy (Laparoscopic), cholecystectomy (Laparoscopic) Review of Systems All systems PM: The remainder of the systems were reviewed and are negative General Surgery Exam Initial Vital Signs Temp Pulse Resp BP Pulse Ox 98 F 88 16 130/84 98 12/20/17 18:47 12/20/17 18:47 12/20/17 18:47 12/20/17 18:47 12/20/17 18:47 - General physical appearance well developed, well nourished, no distress, obese - Eyes PERRL, normal ocular movement - Abdomen Abdomen general surgery: Present: bowel sounds present, soft, tender Abdominal Tenderness: Present: RLQ - Integumentary Integumentary general surgery: Present: warm and dry. Absent: diaphoresis - Neurologic Present: CN 2-12 grossly intact Results - Labs 12/23/17 05:43 12/23/17 05:43 Abnormal lab results RBC 3.70 M/mcL (3.82-4.97) L 12/23/17 05:43 Hct 33.5 % (35.3-44.9) L 12/23/17 05:43 Chloride 112 mEq/L (98-107) H 12/23/17 05:43 Carbon Dioxide 20 mEq/L (23-29) L 12/23/17 05:43 POC Glucose 103 mg/dL (70-99) H 12/21/17 11:21 Calcium 7.8 mg/dL (8.6-10.3) L 12/23/17 05:43 Globulin 2.3 g/dL (2.4-3.5) L 12/20/17 19:22 Ur Specific [place] > 1.030 (1.010-1.025) H 12/20/17 19:20 Urine Microscopic WBC 5-15 per hpf (0-3) H 12/20/17 19:20 Ur Squamous Epith Cells Many per lpf (None-Few) H 12/20/17 19:20 Diabetes panel 12/23/17 Range/Units 05:43 Sodium 138 (136-145) mEq/L Potassium 4.0 (3.5-5.1) mEq/L Chloride 112 H (98-107) mEq/L Carbon Dioxide 20 L (23-29) mEq/L BUN 7 (6-20) mg/dL Creatinine 0.61 (0.60-1.20) mg/dL Glucose 90 (70-105) mg/dL Calcium 7.8 L (8.6-10.3) mg/dL Calcium panel 12/23/17 Range/Units 05:43 Calcium 7.8 L (8.6-10.3) mg/dL Pituitary panel 12/23/17 Range/Units 05:43 Sodium 138 (136-145) mEq/L Potassium 4.0 (3.5-5.1) mEq/L Chloride 112 H (98-107) mEq/L Carbon Dioxide 20 L (23-29) mEq/L BUN 7 (6-20) mg/dL Creatinine 0.61 (0.60-1.20) mg/dL Glucose 90 (70-105) mg/dL Calcium 7.8 L (8.6-10.3) mg/dL Adrenal panel 12/23/17 Range/Units 05:43 Sodium 138 (136-145) mEq/L Potassium 4.0 (3.5-5.1) mEq/L Chloride 112 H (98-107) mEq/L Carbon Dioxide 20 L (23-29) mEq/L BUN 7 (6-20) mg/dL Creatinine 0.61 (0.60-1.20) mg/dL Glucose 90 (70-105) mg/dL Calcium 7.8 L (8.6-10.3) mg/dL All other labs normal. - Imaging CT scan - abdomen: report reviewed, image reviewed CT scan - pelvis: report reviewed, image reviewed
[2017-12-21] MEDS ORDERED: *HR* Succinylcholine 200 MG/10 ML VIAL IVP ONE (12:06)
[2017-12-21] MEDS ORDERED: *HR* Rocuronium Bromide 50 MG/5 ML VIAL ONE (12:06)
[2017-12-21] MEDS ORDERED: Dexamethasone 4 MG/ML VIAL ONE (12:06)
[2017-12-21] MEDS ORDERED: Lidocaine -MPF 2% 2 ML VIAL ONE (12:06)
[2017-12-21] MEDS ORDERED: Lidocaine -MPF 4% 5 ML AMPUL ONE (12:06)
[2017-12-21] MEDS ORDERED: Ondansetron 4 MG/2 ML VIAL ONE (12:06)
[2017-12-21] MEDS ORDERED: *HR* Propofol 200 MG/20 ML VIAL IVP ONE (12:09)
[2017-12-21] MEDS ORDERED: *HR* FentaNYL (PF) 100 MCG/2 ML VIAL ONE (12:09)
--- NOTE | 2017-12-21 13:05 | Anesthesia Evaluation PreOp ---
Date of Encounter: 12/21/17 Time of Encounter: 13:02 - Past History Planned Operation: Appy re: stump appendicitis Pulmonary History: ELENO Dx (denies), Other (r) HEEL BUILDER MACHINE History: Other (MIgraines,) Other Medical History: GERD Anesthesia History: No Prior Anesthetic Complications, Past Anesthesia (Lap Appy , Sandra) Alcohol Use: none Drug use: none Medications and Allergies Cetirizine HCl [Zyrtec] 10 mg PO DAILY 12/21/17 [History] EPINEPHrine [Epipen] 0.3 mg IM ONCE PRN 12/21/17 [History] Meloxicam [Mobic] 15 mg PO DAILY 12/21/17 [History] Montelukast [Singulair] 10 mg PO DAILY 12/21/17 [History] Norgestimate-Ethinyl Estradiol [Sprintec 28 Day Tablet] 1 tab PO DAILY 12/21/17 [History] Omeprazole [PriLOSEC] 40 mg PO DAILY 12/21/17 [History] Promethazine [Phenergan] 25 mg PO Q12H PRN 12/21/17 [History] SUMAtriptan succinate [Imitrex] 50 mg PO Q2H PRN 12/21/17 [History] Topiramate [Topamax] 50 mg PO BID 12/21/17 [History] 3 Allergy/AdvReac Type Severity Reaction Status Date / Time clavulanic acid Allergy Rash Verified 12/20/17 17:34 [From Augmentin] - Meds/Allergy Pre-op Review Medications Reviewed: Yes Allergies Reviewed: Yes Beta Blockers on Current Med List: No Anesthesia Results - Labs 12/21/17 05:48 12/21/17 05:48 Laboratory Tests 03/26/14 12/20/17 12/21/17 19:17 19:20 05:48 PT 11.2 INR 1.1 Est GFR (Non-Af Amer) > 60 POC Glucose Urine Test Negative 12/21/17 11:21 PT INR Est GFR (Non-Af Amer) POC Glucose 103 H Urine Test Anesthesia Exam O2 Sat Height 1.6 m Height 1.6 m Height 1.6 m Weight 114.6 kg Weight 114.6 kg Weight 113.398 kg Weight 113.398 kg O2 Sat by Pulse Oximetry 98 O2 Sat by Pulse Oximetry 98 O2 Sat by Pulse Oximetry 97 O2 Sat by Pulse Oximetry 99 O2 Sat by Pulse Oximetry 98 O2 Sat by Pulse Oximetry 98 Vital Signs Temp Pulse Resp BP Pulse Ox 98 F 88 16 130/84 98 12/20/17 18:47 12/20/17 18:47 12/20/17 18:47 12/20/17 18:47 12/20/17 18:47 Height: 5'3" Weight: 252# BMI = 45 NPO (# of Hours): MNOc Pain Scale Used: Numeric (1 - 10) - HEENT Pupil (Motor): Pupils equal, EOMI Mallampati: III Teeth: Normal Oral Opening: Greater than 3 - HEEL BUILDER MACHINE LOC: Confused HEEL BUILDER MACHINE Motor: Normal RUE, Normal LUE, Normal RLE, Normal LLE, Normal Face HEEL BUILDER MACHINE Sensory: Normal: RUE, LUE, RLE, LLE, Face - Cardiac Rhythm: Regular Murmur: None - Pulmonary Breath Sounds: bilateral Clear Respiratory Effort: Symmetrical Anesthesia Assess/Plan ASA Score: 3 Modified Holman Scale for Level of Consciousness: Cooperative, oriented, and tranquil Anesthetic Plan: General Monitoring Plan: Standard Monitors Recovery Plan: PACU Anes Supervising Prov Stmt: PT seen/evaluated, R&B discussed, questions answered and consent obtained. Homer Anglin MD
[2017-12-21] MEDS ORDERED: Acetaminophen IV 1,000 MG/100 ML INFUS..BTL ONE (13:17)
[2017-12-21] MEDS ORDERED: Pregabalin 75 MG CAPSULE ONE (13:17)
[2017-12-21] MEDS ORDERED: *HR* Meperidine 25 MG/ML SYRINGE IVP PRN (14:03)
[2017-12-21] MEDS ORDERED: *HR* OxyCODONE Immed Rel 5 MG TABLET PO PRN (14:03)
[2017-12-21] MEDS ORDERED: *HR* Promethazine 25 MG/ML VIAL IVP PRN (14:03)
[2017-12-21] MEDS ORDERED: *HR* Labetalol 100 MG/20 ML MDV IVP PRN (14:03)
[2017-12-21] MEDS ORDERED: EPHEDrine 50 MG/ML VIAL ONE (14:23)
[2017-12-21] MEDS ORDERED: Neostigmine Methylsulfate 3 MG/3 ML SYRINGE ONE (14:49)
[2017-12-21] MEDS ORDERED: *HR* Morphine 10 MG/ML VIAL ONE (15:39)
--- NOTE | 2017-12-21 16:11 | Operative Note ---
Date of procedure: 12/21/17 Pre-op diagnosis: appendaceal stump appendicitis Post-op diagnosis: same Procedure: Laparoscopic appendectomy (stump) Complications: none immediate Anesthesia: VENANCIO local Surgeon: Zoie Schulte Was there an diver assistant present: No Plywood Stock Grader Other: Krzysztof Marshall Estimated blood loss (cc): 10 Specimen: appendix stump Condition: stable Disposition: PACU Procedure in Detail: A she was brought into the operating suite and placed supine on the operating table. Sign in was performed and everyone was in agreement. Anesthesia was induced the patient was endotracheally intubated by anesthesia without incident. The circulating nurse performed a straight catheter. The abdomen was prepped and draped in the usual sterile fashion. Timeout was performed again everyone was in agreement. A stab incision in the left upper quadrant was made with an 11 blade. A Veress needle was placed in this and water drop test confirmed placement and the abdomen was insufflated. We made a supra- umbilical incision with an 11 blade. Towel clips are placed on either side of umbilicus for retraction. We entered the abdomen with a 5 mm 0 degree laparoscope on a 5 mm XL trocar. The Veress needle was removed. A suprapubic 5 mm port was placed under direct visualization after first incising the skin with an 11 blade. The 5 mm super umbilical port was exchanged for a 10 mm port. A left lower quadrant 5 mm port was placed under direct visualization after first incising the skin with an 11 blade. The patient was placed in Trendelenburg left side down position. The tinea of the cecum were located. There was a collection of mucus at the distal cecum adjacent to logan that were seen lying against the cecum. The appendiceal stump was located and grasped with a laparoscopic [place]. Using the laparoscopic [place] and [place] the appendiceal stump was dissected off the cecum. The appendiceal stump was adherent to the fat of the distal cecum. The appendiceal stump was able to be removed off the cecal fat with gentle blunt dissection and the scissors. The appendix stump was placed no laparoscopic Endo Catch bag and removed via the umbilical incision. The appendiceal stump was evaluated and the proximal and was opened and the lumen was present that there were also logan that were adherent to the proximal end of the appendix. Evaluation of the cecum noted no obvious appendiceal lumen to the cecum. The right lower quadrant was irrigated with sterile saline. A senior surgical partner was called to the operating table to evaluate the cecum as well and further exam of the cecum demonstrated no obvious lumen. A 19-[place] Oneal drain was placed through the left lower quadrant port site, secured to the skin with a 2-0 silk stitch, and placed along the face of the cecum. The patient tolerated the procedure well. All lap and instrument counts are correct at the end of the case. All 3 port sites were removed. The abdominal wall the supraumbilical incision site was closed with a 0 Vicryl [id number] stitch. 30 mL of 0.5% Marcaine were injected at the 3 port sites subcutaneously. The suprapubic skin incision was closed with a 4-0 Monocryl interrupted subcuticular stitch. The skin at the supraumbilical incision was closed with a 4-0 Monocryl running subcuticular stitch. Mastisol and Steri-Strips were applied to the wounds as dressings. Drain sponge was placed at the Oneal drain site and secured with tape. Patient was awoken by anesthesia and taken to PACU in stable condition.
--- NOTE | 2017-12-21 16:37 | Anesthesia Evaluation Post Op ---
Date of Encounter: 12/21/17 Time of Encounter: 16:36 - Vital Signs Vital Signs: Vital Signs/O2 Sat/Glucose, Most Recent Temp Pulse Resp BP Pulse Ox 99.9 F H 81 16 100/63 99 12/21/17 16:00 12/21/17 16:20 12/21/17 16:20 12/21/17 16:20 12/21/17 16:20 Blood Glucose* 103 - Lungs Lungs: Clear Ascult./Percussion - Airway Airway: Non-obstructed - Cardiovascular Regular Rate - Mental Status Mental Status: Alert & Oriented, Answers Appropriately - Pain Pain Scale: 3 Pain Scale used: Numeric (1 - 10) - Nausea Vomiting Nausea Vomiting: Not Present - Hydration Hydration: NPO - Discharge PostOp Status: Transfer Patient to floor
[2017-12-21] MEDS ORDERED: Naloxone 0.4 MG/ML INJ IVP PRN (16:47)
[2017-12-21] MEDS ORDERED: Ondansetron 4 MG/2 ML VIAL IVP PRN (16:47)
[2017-12-21] MEDS ORDERED: SUMAtriptan succinate 50 MG TABLET PO PRN (16:47)
[2017-12-21] MEDS: Topiramate 25 MG TABLET PO SCH (23:34)
[2017-12-21] MEDS: *HR* Heparin 5,000 UNIT/ML VIAL SQ SCH (23:34)
[2017-12-22] MEDS: *HR* OxyCODONE/APAP 5/325 TABLET PO PRN ×4 (04:26→20:37)
[2017-12-22] MEDS: *HR* Heparin 5,000 UNIT/ML VIAL SQ SCH ×2 (04:26→16:53)
[2017-12-22 05:54] LABS: Basophils % 0.2 %; Eosinophils # 0.1 K/mcL (0.0-0.6); Eosinophils % 0.6 %; Hematocrit 34.7 % (35.3-44.9); Hemoglobin 11.3 g/dL (11.5-15.4); Immature Granulocytes % 0.4 % (0-4); Lymphocytes # 1.9 K/mcL (0.6-4.6); Lymphocytes % 17.4 %; Mean Corpuscular HGB Conc 32.6 g/dL (31.6-35.5); Mean Corpuscular Hemoglobin 29.1 pg (28.0-33.3); Mean Corpuscular Volume 89.4 fL (83.0-100.0); Mean Platelet Volume 11.1 fL (9.4-12.4); Monocytes # 0.6 K/mcL (0.0-1.3); Monocytes % 5.3 %; Neutrophils # 8.3 K/mcL (1.6-8.9); Platelet Count 184 K/mcL (140-400); Red Blood Count 3.88 M/mcL (3.82-4.97); Red Cell Distribution Width 13.4 % (11.5-14.5); Segmented Neutrophils % 76.1 %
[2017-12-22] MEDS: Piperacillin/Tazobactam 3.375 GM in 0.9 % Sodium Chloride Mini Bag 100 ML IVPB SCH ×3 (08:51→16:46)
[2017-12-22] MEDS: 0.9 % Sodium Chloride 1,000 ML IVC SCH ×2 (08:51→10:07)
[2017-12-22] MEDS: Topiramate 25 MG TABLET PO SCH ×2 (08:57→20:38)
[2017-12-22] MEDS: NORGESTIMATE ETHINYL ESTRADIOL PO SCH (08:57)
[2017-12-22] MEDS: Loratadine 10 MG TABLET PO SCH (08:58)
[2017-12-22] MEDS: Pantoprazole 40 MG VIAL IVP SCH (09:08)
[2017-12-22] MEDS: MORPHINE SUL Oral CONC 10 MG/0.5 ML ORAL.SYG PO PRN (10:07)
--- NOTE | 2017-12-22 11:43 | General Surgery Progress Note ---
<Maria Antonia Bar - Last Filed: 12/22/17 11:41> Date of Encounter: 12/22/17 Time of Encounter: 11:30 - Assessment and Plan (1) Acute appendicitis Status: Acute POD #1 Laparoscopic appendectomy (stump) with Dr. Schulte Pathology pending Advance to soft diet Continue ABDIRAHMAN drain Continue IV antibiotics- Zosyn Supportive care and pain control- added ibuprofen IS every 1 hour while awake PPI therapy daily Increase activity as tolerated Daily incision and drain care Repeat am labs- CBC, BMP Qualifiers: Acute appendicitis type: unspecified acute appendicitis type Qualified Code (s): K35.80 - Unspecified acute appendicitis (2) Morbid obesity with BMI of 45.0-49.9, adult Status: Chronic (3) DVT prophylaxis Status: Acute Ambulate hallways TID with assistance Heparin 5,000 units SQ twice daily for DVT prophylaxis Subjective Patient reports: still having pain (post-operative- no well controlled per patient), tolerating liquids well, voiding w/o difficulty, flatus, no bowel movement, afebrile, other (Patient states that she is "starving for food") Objective Vital Signs - Last 8 Hours Temp Pulse Resp BP Pulse Ox 12/22/17 10:35 98.6 F 85 16 119/71 97 12/22/17 06:56 98.6 F 78 17 108/70 97 12/22/17 04:32 97.8 F 77 16 113/70 97 Intake and Output 12/21/17 12/22/17 12/22/17 23:59 07:59 15:59 Intake Total 1420 / 1420 2099 / 2099 Output Total 70 / 70 1325 / 1325 215 / 215 Balance -70 / -70 95 / 95 1885 / 1885 Intake: IV Fluids 100 / 100 2099 / 2099 0.9 % Sodium Chloride 1,000 ML 1000 / 1000 @ 50 mls/hr IVC .Q20H CADEN Rx#: [id number] Zosyn 3.375 GM In 0.9 % Sodium 100 / 100 Chloride (Mini-Bag +) 100 ML @ 25 mls/hr IVPB Q8HR CADEN Rx#: [id number] Oral 1320 / 1320 Output: Urine 1300 / 1300 200 / 200 Wound Drainage 70 / 70 25 / 25 15 / 15 Left Lower Abdomen 30 / 30 25 / 25 15 / 15 Other: Meal clears Percent of Meal Consumed 95% Weight 116 kg Patient Weight 12/22/17 23:59 Weight 116 kg - General physical appearance well developed, well nourished, no distress - Eyes normal ocular movement - ENT normal mucosa, atraumatic, normocephalic - Neck Neck exam: trachea midline - Respiratory normal respiratory effort, clear to auscultation - Cardiovascular Cardiovascular exam: Present: RRR - Abdomen Abdomen: Present: bowel sounds present, soft, tender (Expected postoperative tenderness), wound (ABDIRAHMAN drain with serousang. drainage noted (110ml noted since surgery)) - Incision Incision: Present: clean and dry, intact - Neurologic CN 2-12 grossly intact - Psychiatric oriented to time, oriented to person, oriented to place, speech is normal, memory intact - Labs 12/22/17 05:08 12/21/17 05:48 - VTE Documentation of Mechanical Device: Intermittent pneumatic compression device Consult Discharge Plan - Plan Additional Instructions: General Surgical Discharge Instructions 1. No pushing, pulling, or lifting greater than 15 lbs for 2 weeks 2. You may shower beginning today, but no tub baths, soaking, or swimming for 2 weeks. 3. You may resume driving when you are off narcotics and are safe to react in a car. 4. Take ibuprofen every 8 hours for discomfort. If this does not relieve discomfort, you may take the as needed Percocet. Take narcotics as directed. Do not take more narcotics then directed and do not share your narcotics with any other person. Do not drink alcohol while on narcotics. 5. Take stool softeners (Colace) or a water based laxative (Miralax) while taking narcotics. You may hold for loose stools. 6. Report any fevers greater than 100.5F, increase abdominal discomfort, drainage that looks like pus, increased redness or pain at the surgical site, or any vomiting. 7. Report any pain in the calves, shortness of breath, or rapid heartbeat. 8. Follow-up in the office as directed. 9. If you were prescribed antibiotics, do not stop them without talking to your provider. 10. Follow a low residue diet until directed otherwise. Drain care- cleanse around drain with soap and water in the shower daily, pat dry. Apply clean split 4 x 4 gauze and tape to secure daily. Record outputs on drain record and bring to follow-up appointment next week. Referrals: Abril Tobias CNP [Advanced Practice Nurse] - 12/28/17 3:15 pm (surgery follow -up) Jodie Gifford CNP [Primary Care Provider] - Prescriptions: OxyCODONE/APAP 5/325 [Percocet 5/325 MG] 1 each PO Q4HR PRN 5 Days #20 tablet PRN Reason: Pain Ibuprofen [Motrin] 800 mg PO Q8HR #50 tablet Docusate [Colace] 100 mg PO BID #30 capsule - Attending Attestation For this encounter, I have reviewed the ELECTRICAL WIRING LINEMAN or PA documentation, treatment plan, and medical decision making; and I have had face to face time with this patient. <Zoie Schulte - Last Filed: 12/23/17 18:19> Date of Encounter: 12/22/17 - Assessment and Plan (1) Acute appendicitis Status: Resolved Patient is status post laparoscopic appendectomy for stump appendicitis. She is tolerating clear diet, advance. Continue antibiotics area and ABDIRAHMAN drain is serosanguineous output. When necessary pain control. Ambulate. Qualifiers: Acute appendicitis type: unspecified acute appendicitis type Qualified Code (s): K35.80 - Unspecified acute appendicitis (2) Morbid obesity with BMI of 45.0-49.9, adult Status: Chronic Subjective Patient reports: no new complaints, still having pain, pain is less, tolerating liquids well, flatus, no bowel movement Objective Vital Signs - Last 8 Hours Temp Pulse Resp BP Pulse Ox 12/23/17 14:04 98.8 F 93 16 117/81 97 12/23/17 11:33 97.9 F 75 16 142/81 95 Intake and Output 12/23/17 12/23/17 12/23/17 07:59 15:59 23:59 Intake Total 1100 / 1100 120 / 120 Output Total 400 / 400 420 / 420 Balance 700 / 700 -300 / -300 Intake: IV Fluids 1100 / 1100 0.9 % Sodium Chloride 1,000 ML 1000 / 1000 @ 50 mls/hr IVC .Q20H CADEN Rx#: [id number] Zosyn 3.375 GM In 0.9 % Sodium 100 / 100 Chloride (Mini-Bag +) 100 ML @ 25 mls/hr IVPB Q8HR CADEN Rx#: [id number] Oral 120 / 120 Output: Urine 400 / 400 400 / 400 Wound Drainage Left Lower Abdomen Other: Weight 117.2 kg Patient Weight 12/23/17 23:59 Weight 117.2 kg - General physical appearance well developed, well nourished, no distress - ENT normal mucosa, normocephalic - Neck Neck exam: trachea midline - Respiratory normal expansion, normal respiratory effort - Cardiovascular Cardiovascular exam: Present: RRR - Abdomen Abdomen: Present: bowel sounds present, soft, tender - Incision Incision: Present: clean and dry, intact - Integumentary no rash - Neurologic CN 2-12 grossly intact - Musculoskeletal normal posture - Psychiatric oriented to time, oriented to person, oriented to place, speech is normal, memory intact - Labs 12/23/17 05:43 12/23/17 05:43 Diabetes panel 12/23/17 Range/Units 05:43 Sodium 138 (136-145) mEq/L Potassium 4.0 (3.5-5.1) mEq/L Chloride 112 H (98-107) mEq/L Carbon Dioxide 20 L (23-29) mEq/L BUN 7 (6-20) mg/dL Creatinine 0.61 (0.60-1.20) mg/dL Glucose 90 (70-105) mg/dL Calcium 7.8 L (8.6-10.3) mg/dL Calcium panel 12/23/17 Range/Units 05:43 Calcium 7.8 L (8.6-10.3) mg/dL Pituitary panel 12/23/17 Range/Units 05:43 Sodium 138 (136-145) mEq/L Potassium 4.0 (3.5-5.1) mEq/L Chloride 112 H (98-107) mEq/L Carbon Dioxide 20 L (23-29) mEq/L BUN 7 (6-20) mg/dL Creatinine 0.61 (0.60-1.20) mg/dL Glucose 90 (70-105) mg/dL Calcium 7.8 L (8.6-10.3) mg/dL Adrenal panel 12/23/17 Range/Units 05:43 Sodium 138 (136-145) mEq/L Potassium 4.0 (3.5-5.1) mEq/L Chloride 112 H (98-107) mEq/L Carbon Dioxide 20 L (23-29) mEq/L BUN 7 (6-20) mg/dL Creatinine 0.61 (0.60-1.20) mg/dL Glucose 90 (70-105) mg/dL Calcium 7.8 L (8.6-10.3) mg/dL - Attending Attestation I have personally performed a face to face evaluation on this patient. I have reviewed and agree with the care plan. History and Exam by me shows:
[2017-12-22] MEDS: Ibuprofen 800 MG TABLET PO SCH ×2 (13:07→16:46)
[2017-12-23] MEDS: Ibuprofen 800 MG TABLET PO SCH ×2 (00:04→08:50)
[2017-12-23] MEDS: Piperacillin/Tazobactam 3.375 GM in 0.9 % Sodium Chloride Mini Bag 100 ML IVPB SCH ×2 (00:04→08:51)
[2017-12-23] MEDS: 0.9 % Sodium Chloride 1,000 ML IVC SCH (05:31)
[2017-12-23] MEDS: *HR* Heparin 5,000 UNIT/ML VIAL SQ SCH (05:35)
[2017-12-23 06:26] LABS: Basophils % 0.4 %; Eosinophils # 0.2 K/mcL (0.0-0.6); Eosinophils % 3.1 %; Hematocrit 33.5 % (35.3-44.9); Hemoglobin 11.7 g/dL (11.5-15.4); Immature Granulocytes % 0.4 % (0-4); Lymphocytes # 2.2 K/mcL (0.6-4.6); Lymphocytes % 28.7 %; Mean Corpuscular HGB Conc 34.9 g/dL (31.6-35.5); Mean Corpuscular Hemoglobin 31.6 pg (28.0-33.3); Mean Corpuscular Volume 90.5 fL (83.0-100.0); Mean Platelet Volume 11.3 fL (9.4-12.4); Monocytes # 0.7 K/mcL (0.0-1.3); Monocytes % 8.6 %; Neutrophils # 4.6 K/mcL (1.6-8.9); Platelet Count 190 K/mcL (140-400); Red Cell Distribution Width 13.5 % (11.5-14.5); Segmented Neutrophils % 58.8 %
[2017-12-23 07:52] LABS: BUN/Creatinine Ratio 11 (6-26); Blood Urea Nitrogen 7 mg/dL (6-20); Calcium 7.8 mg/dL (8.6-10.3); Carbon Dioxide 20 mEq/L (23-29); Chloride 112 mEq/L (98-107); Glucose 90 mg/dL (70-105); Osmolality,Calculated 284 (280-300); Sodium 138 mEq/L (136-145); eGFR For Non-African Americans > 60 (> 60)
[2017-12-23] MEDS: Loratadine 10 MG TABLET PO SCH (08:49)
[2017-12-23] MEDS: NORGESTIMATE ETHINYL ESTRADIOL PO SCH (08:50)
[2017-12-23] MEDS: Topiramate 25 MG TABLET PO SCH (08:50)
[2017-12-23] MEDS: Pantoprazole 40 MG VIAL IVP SCH (08:50)
--- NOTE | 2017-12-23 12:59 | Discharge Summary ---
Orders not resulted at time of discharge: Pending orders 12/21/17 15:51 Surgical Pathology [PTH] Routine Date of Encounter: 12/23/17 Time of Encounter: 12:45 - Discharge Diagnosis (1) Acute appendicitis Priority: Primary Status: Resolved Qualifiers: Acute appendicitis type: unspecified acute appendicitis type Qualified Code (s): K35.80 - Unspecified acute appendicitis (2) Morbid obesity with BMI of 45.0-49.9, adult Priority: Secondary Status: Chronic General Surgery Exam Initial Vital Signs Temp Pulse Resp BP Pulse Ox 98 F 88 16 130/84 98 12/20/17 18:47 12/20/17 18:47 12/20/17 18:47 12/20/17 18:47 12/20/17 18:47 - General physical appearance well developed, well nourished, no distress - Eyes normal ocular movement - ENT normal mucosa, atraumatic, normocephalic - Neck trachea midline - Respiratory normal expansion, normal respiratory effort, clear to auscultation - Cardiovascular Cardiovascular exam: Present: RRR - Abdomen Abdomen general surgery: Present: bowel sounds present, soft, tender (Expected postoperative tenderness), wound (ABDIRAHMAN drain to bulb suction with serous drainage noted (25ml since midnight)) - Incision Incision: Present: clean and dry, intact - Integumentary Integumentary general surgery: Present: warm and dry - Neurologic Present: CN 2-12 grossly intact - Musculoskeletal Present: normal gait, normal posture - Psychiatric Psychiatric general surgery: Present: appropriate, oriented to person, oriented to place, oriented to time, speech is normal, memory intact - Hospital Course Hospital course: Ms. Valdez is a 37 year old female with a stump appendicitis. She was taken to the operating room with Dr. Schulte for laparoscopic appendectomy and placement of drain. She was admitted to the hospital after surgical intervention for IV antibiotic therapy and pain control. On postoperative day #2, the patient states that her pain has significantly improved. Her vital signs are stable and she is afebrile. She is tolerating a regular diet without nausea or vomiting. She is voiding and ambulating without difficulty. We will begin discharge planning to home with a drain in place. She will have a quick follow- up next week for drain check. - Time Spent with Patient Total time spent providing and/or coordinating discharge services: Less than 30 minutes - Discharge Medications Prescriptions: OxyCODONE/APAP 5/325 [Percocet 5/325 MG] 1 each PO Q4HR PRN 5 Days #20 tablet PRN Reason: Pain Ibuprofen [Motrin] 800 mg PO Q8HR #50 tablet Docusate [Colace] 100 mg PO BID #30 capsule Home Medications: Cetirizine HCl [Zyrtec] 10 mg PO DAILY 12/21/17 [History] EPINEPHrine [Epipen] 0.3 mg IM ONCE PRN 12/21/17 [History] Meloxicam [Mobic] 15 mg PO DAILY 12/21/17 [History] Montelukast [Singulair] 10 mg PO DAILY 12/21/17 [History] Norgestimate-Ethinyl Estradiol [Sprintec 28 Day Tablet] 1 tab PO DAILY 12/21/17 [History] Omeprazole [PriLOSEC] 40 mg PO DAILY 12/21/17 [History] Promethazine [Phenergan] 25 mg PO Q12H PRN 12/21/17 [History] SUMAtriptan succinate [Imitrex] 50 mg PO Q2H PRN 12/21/17 [History] Topiramate [Topamax] 50 mg PO BID 12/21/17 [History] Docusate [Colace] 100 mg PO BID #30 capsule 12/23/17 [Rx] Ibuprofen [Motrin] 800 mg PO Q8HR #50 tablet 12/23/17 [Rx] OxyCODONE/APAP 5/325 [Percocet 5/325 MG] 1 each PO Q4HR PRN 5 Days #20 tablet [Rx] Allergies/Adverse Reactions: 3 Allergy/AdvReac Type Severity Reaction Status Date / Time clavulanic acid Allergy Rash Verified 12/20/17 17:34 [From Augmentin] Date of admission: 12/20/17 22:07 Primary care physician: Jodie Gifford CNP Discharging clinician: Zoie Schulte (Melanie Bar) Anticipated date of discharge: 12/23/17 Labs on day of discharge: Labs from last 24 hours 12/23/17 12/23/17 05:43 05:43 WBC 7.8 RBC 3.70 L Hgb 11.7 Hct 33.5 L MCV 90.5 MCH 31.6 MCHC 34.9 RDW 13.5 Plt Count 190 MPV 11.3 Immature Gran % 0.4 Seg Neutrophils % 58.8 Lymphocytes % 28.7 Monocytes % 8.6 Eosinophils % 3.1 Basophils % 0.4 Neutrophils # 4.6 Lymphocytes # 2.2 Monocytes # 0.7 Eosinophils # 0.2 Basophils # 0.0 Sodium 138 Potassium 4.0 Chloride 112 H Carbon Dioxide 20 L BUN 7 Creatinine 0.61 Est GFR ( Amer) > 60 Est GFR (Non-Af Amer) > 60 BUN/Creatinine Ratio 11 Glucose 90 Calculated Osmolality 284 Calcium 7.8 L - Patient Status Disposition: Home, Self-Care Condition: Good Functional capacity at discharge: independent ambulation Overall status at discharge: patient is progressing back to baseline - Discharge Instructions Follow Up With: Jodie Gifford CNP [Primary Care Provider] - Abril Tobias CNP [Advanced Practice Nurse] - 12/28/17 3:15 pm (surgery follow -up) Additional Instructions: General Surgical Discharge Instructions 1. No pushing, pulling, or lifting greater than 15 lbs for 2 weeks 2. You may shower beginning today, but no tub baths, soaking, or swimming for 2 weeks. 3. You may resume driving when you are off narcotics and are safe to react in a car. 4. Take ibuprofen every 8 hours for discomfort. If this does not relieve discomfort, you may take the as needed Percocet. Take narcotics as directed. Do not take more narcotics then directed and do not share your narcotics with any other person. Do not drink alcohol while on narcotics. 5. Take stool softeners (Colace) or a water based laxative (Miralax) while taking narcotics. You may hold for loose stools. 6. Report any fevers greater than 100.5F, increase abdominal discomfort, drainage that looks like pus, increased redness or pain at the surgical site, or any vomiting. 7. Report any pain in the calves, shortness of breath, or rapid heartbeat. 8. Follow-up in the office as directed. 9. If you were prescribed antibiotics, do not stop them without talking to your provider. 10. Follow a low residue diet until directed otherwise. Drain care- cleanse around drain with soap and water in the shower daily, pat dry. Apply clean split 4 x 4 gauze and tape to secure daily. Record outputs on drain record and bring to follow-up appointment next week. - Diet and Activity Activity: other (See additional instructions above) Diet: advance to your usual diet - Attending Attestation For this encounter, I have reviewed the TAX MANAGER or PA documentation, treatment plan, and medical decision making; and I have had face to face time with this patient.
[2017-12-23 14:05] VITALS: BP 117/81
== END 2017-12-23 15:01 | disposition home or self-care (01) ==
LOC: 3ANU 18:37 → EMEROOARM 18:37 → 3ANU 22:21
PROVIDERS: ADMIT Surgery; ATTEND Surgery

== ENCOUNTER → 2018-06-25 12:49 | Observation (INO) ==
[2018-06-25 09:54] LABS: Basophils % 0.2 %; Eosinophils # 0.2 K/mcL (0.0-0.6); Eosinophils % 1.9 %; Hematocrit 36.6 % (35.3-44.9); Hemoglobin 12.5 g/dL (11.5-15.4); Immature Granulocytes % 0.7 % (0-4); Lymphocytes # 1.8 K/mcL (0.6-4.6); Mean Corpuscular HGB Conc 34.2 g/dL (31.6-35.5); Mean Corpuscular Hemoglobin 28.9 pg (28.0-33.3); Mean Corpuscular Volume 84.7 fL (83.0-100.0); Mean Platelet Volume 10.6 fL (9.4-12.4); Monocytes # 0.5 K/mcL (0.0-1.3); Monocytes % 5.4 %; Neutrophils # 6.5 K/mcL (1.6-8.9); Platelet Count 203 K/mcL (140-400); Red Blood Count 4.32 M/mcL (3.82-4.97); Red Cell Distribution Width 12.9 % (11.5-14.5); Segmented Neutrophils % 71.8 %
--- NOTE | 2018-06-25 10:09 | Anesthesia Evaluation PreOp ---
Date of Encounter: 06/25/18 Time of Encounter: 10:07 - Past History Planned Operation: Suction D&C Cardiac History: Denies any Significant Hx Pulmonary History: Former smoker (several years ago), Asthma Other Medical History: GERD, Other (BMI 45) Anesthesia History: No Prior Anesthetic Complications, Past Anesthesia (appendectomy x 2, cholecystectomy) Alcohol Use: none Drug use: none Medications and Allergies Allergy/AdvReac Type Severity Reaction Status Date / Time clavulanic acid Allergy Rash Verified 06/19/18 12:15 [From Augmentin] - Meds/Allergy Pre-op Review Medications Reviewed: Yes Allergies Reviewed: Yes Beta Blockers on Current Med List: No Anesthesia Results - Labs 06/25/18 09:29 - Imaging EKG: report reviewed, image reviewed (SR) Anesthesia Exam Last Vital Signs Temp 98.5 F 06/25/18 09:13 Pulse 89 06/25/18 09:13 Resp 14 06/25/18 09:13 BP 119/67 06/25/18 09:13 Pulse Ox 99 06/25/18 09:13 Weight: 116 kg NPO (# of Hours): > 8 hrs - HEENT Pupil (Motor): Pupils equal, EOMI Mallampati: II Teeth: Normal Oral Opening: Greater than 3 - WATCHMAKER APPRENTICE LOC: Oriented - Cardiac Rhythm: Regular Murmur: None - Pulmonary Breath Sounds: bilateral Clear Respiratory Effort: Symmetrical Anesthesia Assess/Plan ASA Score: 3 Level of consciousness: Cooperative Anesthetic Plan: General Monitoring Plan: Standard Monitors Recovery Plan: PACU
--- NOTE | 2018-06-25 10:13 | OB/GYN History & Physical ---
Date of Encounter: 06/25/18 Time of Encounter: 10:10 Assessment and Plan (1) Missed Current visit: Yes Status: Acute 37 yo female at 9 weeks EGA with 7 week sized missed . Pt tried medical with Cytotec without success.. Pt's questions answered and risks and benefits of surgery discussed and consent obtained. History of Present Illness Chief complaint: missed HPI: Ms. Valdez is a 37 year old female female presents with missed at 9 w4d with no FHT's and 2 week lag in growth with pole measuring 7weeks. She tried Cytotec for 3 days and had only spotting. She denies fever or chills. No other complications. Past Med Surg Social Fam HX - Past Medical History Source: patient, old records reviewed Medical history: no medical history Psychiatric history: no psych history - Past Surgical History Surgical History: appendectomy, cholecystectomy - Social History Smoking Status: Never smoker Smokeless Tobacco Status: No Alcohol use: none Drug use: none Obstetrical History - Pregnancies : 5 Para: 4 Medications and Allergies Allergy/AdvReac Type Severity Reaction Status Date / Time clavulanic acid Allergy Rash Verified 06/19/18 12:15 [From Augmentin] Exam - Vital Signs Vital signs: Initial Vital Signs Temp Pulse Resp BP Pulse Ox 98.5 F 89 14 119/67 99 06/25/18 09:13 06/25/18 09:13 06/25/18 09:13 06/25/18 09:13 06/25/18 09:13 - Constitutional Constitutional: well developed, no acute distress - HEENT HEENT: EOMI, PERRL - Neck Neck exam: full ROM - Lungs Respiratory exam: CTAB - Cardiovascular Cardiovascular exam: RRR - Extremities Extremities exam: full ROM Deep Tendon Reflex Grade: 2+ Normal Results Result Diagrams: 06/25/18 09:29 All other labs normal.
[2018-06-25 10:25] LABS: Amphetamine Screen,Urine Negative ng/mL (Cutoff=1000); Barbiturate Screen,Urine Negative ng/mL (Cutoff=200); Benzodiazepines Screen,Urine Negative ng/mL (Cutoff=200); Cannabinoid Screen,Urine Negative ng/mL (Cutoff = 50); Cocaine Screen,Urine Negative ng/mL (Cutoff= 300); Opiate Screen,Urine Positive ng/mL (Cutoff=300); Phencyclidine Screen,Urine Negative ng/mL (Cutoff=25)
--- NOTE | 2018-06-25 12:09 | OB/GYN Procedure Note ---
Suction D&C - Diagnosis Date of procedure: 06/25/18 Pre-op diagnosis: missed Post-op diagnosis: same - Procedure Procedure: suction D&C Surgeon: Jatinder Lovell Was there an gynecological assistant present: No Anesthesia Type: General Estimated blood loss (cc): 150 Complications: none Fluids: crystalloid Specimen: products of conception Disposition: PACU Narrative: Patient's 37-year-old 5 para 4 female presented to office with should have been 9 weeks and 3 days gestation found to have 7 week pole with no heart tones noted activity. Initially patient did elect for medical induction with Cytotec however had only spotting therefore presents today for suction D&C. She is aware operative risks and signed appropriate consent. Description of procedure: Patient was taken operating room where general anesthesia was administered. She was prepped draped in usual sterile fashion. Bladder was drained of clear urine. Cervix is visualized and grasped with single-tooth tenaculum. Cervix is dilated large size Hanks dilator. 8 mm suction curet was passed multiple times revealing typical products conception. Gentle sharp curettage was performed until all uterine cadet were smooth. Suction curet was again passed multiple times revealing minimal residual tissue. Sharp curettage was again performed uterus was massaged until firm patient was given Methergine 0.2 mg. Tenaculum was removed hemostasis was ensured patient was awakened taken recovery in good condition.
[~2018-06-25 12:49] MED LIST: *HR* HYDROcodone/Acet 5/325 mg TABLET PO ONE; *HR* OxyCODONE Immed Rel 5 MG TABLET PO PRN; *HR* Promethazine 25 MG/ML VIAL IVP PRN; CeFAZolin Syr 3,000MG/30 ML 3,000 MG/30 ML SYRINGE IVPB ONE; Famotidine 20 MG/2 ML VIAL IVP ONE; Ketorolac 30 MG/ML VIAL IVP ONE; Methylergonovine 0.2 MG/ML AMPUL IM ONE; Ringers Solution, Lactated 1,000 ML IVC ONE; Ringers Solution, Lactated 1,000 ML IVC SCH
[2018-06-25 13:08] VITALS: BP 123/70
--- NOTE | 2018-06-25 13:24 | Anesthesia Evaluation Post Op ---
Date of Encounter: 06/25/18 Time of Encounter: 12:40 - Vital Signs Vital Signs: VSS throughout PACU stay. - Lungs Lungs: Clear Ascult./Percussion - Airway Airway: Non-obstructed - Cardiovascular Regular Rate - Mental Status Mental Status: Alert & Oriented, Answers Appropriately - Pain Pain Scale: 2 (cramping, better after toradol) Pain Scale used: Numeric (1 - 10) - Nausea Vomiting Nausea Vomiting: Not Present - Hydration Hydration: Tolerates oral liquids, Able to void - Discharge PostOp Status: Discharge Patient to home
== END | disposition home or self-care (01) ==
LOC: 1NENULAB
PROVIDERS: ADMIT Obstetrics & Gynecology; ATTEND Obstetrics & Gynecology

== ENCOUNTER → 2019-07-21 14:11 | Observation (INO) | END | disposition home or self-care (01) | LOC: 1NENULAB | PROVIDERS: ADMIT Obstetrics & Gynecology; ATTEND Obstetrics & Gynecology ==

== ENCOUNTER → 2019-07-31 18:42 | Observation (INO) ==
[2019-07-31 17:32] LABS: Basophils # 0.1 K/mcL (0.0-0.2); Basophils % 0.3 %; Eosinophils # 0.1 K/mcL (0.0-0.6); Eosinophils % 0.8 %; Hematocrit 36.2 % (35.3-44.9); Immature Granulocytes % 2.1 % (0-4); Lymphocytes # 2.3 K/mcL (0.6-4.6); Lymphocytes % 14.2 %; Mean Corpuscular HGB Conc 33.1 g/dL (31.6-35.5); Mean Corpuscular Hemoglobin 29.9 pg (28.0-33.3); Mean Platelet Volume 10.8 fL (9.4-12.4); Monocytes # 1.1 K/mcL (0.0-1.3); Monocytes % 6.4 %; Neutrophils # 12.5 K/mcL (1.6-8.9); Nucleated Red Blood Cells 0.1 /100 WBC (0); Platelet Count 166 K/mcL (140-400); Red Blood Count 4.02 M/mcL (3.82-4.97); Red Cell Distribution Width 14.7 % (11.5-14.5); Segmented Neutrophils % 76.2 %; White Blood Count 16.3 K/mcL (4.3-11.1)
[2019-07-31 17:37] LABS: Bilirubin,Urine Negative (Negative); Blood,Urine Negative (Negative); Clarity,Urine Cloudy (Clear); Color,Urine Yellow (Yellow); Glucose,Urine (UA) Normal (Normal); Ketones,Urine Negative (Negative); Leukocyte Esterase,Urine Small (Negative); Nitrite,Urine Negative (Negative); PH,Urine 6.5 pH Units (5.0-8.0); Protein,Urine Trace mg/dL (Neg-Trace); Specific Gravity,Urine 1.024 (1.010-1.025); Urobilinogen,Urine Normal (Normal)
[2019-07-31 17:41] LABS: Bacteria,Urine Many per hpf (None-Few); Hyaline Casts,Urine None Seen per lpf (None-Few); Protein/Creatinine Ratio,Urine 0.19 mg/mg (0.00-0.20); RBC,Urine 0-3 per hpf (0-3); Squamous Epithelial Cell,Urine Many per lpf (None-Few)
[2019-07-31 17:51] LABS: Alanine Aminotransferase 15 Units/L (7-52); Aspartate Amino Transferase 19 Units/L (13-39); BUN/Creatinine Ratio 14 (6-26); Blood Urea Nitrogen 7 mg/dL (6-20); Lactate Dehydrogenase 165 Units/L (140-271); Uric Acid 5.3 mg/dL (2.3-7.6); eGFR For African Americans > 60 (> 60); eGFR For Non-African Americans > 60 (> 60)
[~2019-07-31 18:42] MED LIST changes: -*HR* HYDROcodone/Acet 5/325 mg TABLET PO ONE; -*HR* OxyCODONE Immed Rel 5 MG TABLET PO PRN; -*HR* Promethazine 25 MG/ML VIAL IVP PRN; +Acetaminophen 325 MG TABLET PO ONE; -CeFAZolin Syr 3,000MG/30 ML 3,000 MG/30 ML SYRINGE IVPB ONE; -Famotidine 20 MG/2 ML VIAL IVP ONE; -Ketorolac 30 MG/ML VIAL IVP ONE; -Methylergonovine 0.2 MG/ML AMPUL IM ONE; -Ringers Solution, Lactated 1,000 ML IVC ONE; -Ringers Solution, Lactated 1,000 ML IVC SCH
== END | disposition home or self-care (01) ==
LOC: 1NENULAB
PROVIDERS: ADMIT Student in an Organized Health Care Education/Training Program; ATTEND Student in an Organized Health Care Education/Training Program

== ENCOUNTER → 2019-08-05 19:17 | Observation (INO) ==
[2019-08-05 18:47] LABS: Bilirubin,Urine Negative (Negative); Blood,Urine Negative (Negative); Clarity,Urine Clear (Clear); Color,Urine Yellow (Yellow); Glucose,Urine (UA) Normal (Normal); Ketones,Urine Trace mg/dL (Negative); Leukocyte Esterase,Urine Negative (Negative); Nitrite,Urine Negative (Negative); PH,Urine 6.5 pH Units (5.0-8.0); Protein,Urine 30 mg/dL (Neg-Trace); Specific Gravity,Urine 1.029 (1.010-1.025); Urobilinogen,Urine Normal (Normal)
[2019-08-05 18:48] LABS: Bacteria,Urine Moderate per hpf (None-Few); Hyaline Casts,Urine None Seen per lpf (None-Few); RBC,Urine 0-3 per hpf (0-3); Squamous Epithelial Cell,Urine Many per lpf (None-Few)
[2019-08-05 18:57] LABS: Calcium Oxalate Crystals,Urine Present
== END | disposition home or self-care (01) ==
LOC: 1NENULAB
PROVIDERS: ADMIT Student in an Organized Health Care Education/Training Program; ATTEND Student in an Organized Health Care Education/Training Program

== ENCOUNTER → 2019-08-09 21:35 | Observation (INO) ==
[2019-08-09 19:01] LABS: Basophils % 0.2 %; Eosinophils # 0.1 K/mcL (0.0-0.6); Eosinophils % 0.7 %; Hematocrit 37.3 % (35.3-44.9); Immature Granulocytes % 1.9 % (0-4); Lymphocytes # 1.8 K/mcL (0.6-4.6); Lymphocytes % 12.2 %; Mean Corpuscular HGB Conc 32.2 g/dL (31.6-35.5); Mean Corpuscular Hemoglobin 29.3 pg (28.0-33.3); Mean Corpuscular Volume 91.2 fL (83.0-100.0); Mean Platelet Volume 11.2 fL (9.4-12.4); Monocytes # 0.9 K/mcL (0.0-1.3); Monocytes % 6.5 %; Neutrophils # 11.4 K/mcL (1.6-8.9); Nucleated Red Blood Cells 0.1 /100 WBC (0); Platelet Count 170 K/mcL (140-400); Red Blood Count 4.09 M/mcL (3.82-4.97); Red Cell Distribution Width 15.2 % (11.5-14.5); Segmented Neutrophils % 78.5 %; White Blood Count 14.5 K/mcL (4.3-11.1)
[2019-08-09 19:09] LABS: Protein/Creatinine Ratio,Urine 0.27 mg/mg (0.00-0.20)
[2019-08-09 19:17] LABS: Alanine Aminotransferase 16 Units/L (7-52); Aspartate Amino Transferase 22 Units/L (13-39); BUN/Creatinine Ratio 14 (6-26); Blood Urea Nitrogen 8 mg/dL (6-20); Lactate Dehydrogenase 172 Units/L (140-271); Uric Acid 5.3 mg/dL (2.3-7.6); eGFR For African Americans > 60 (> 60); eGFR For Non-African Americans > 60 (> 60)
== END | disposition home or self-care (01) ==
LOC: 1NENULAB
PROVIDERS: ADMIT Obstetrics & Gynecology; ATTEND Obstetrics & Gynecology

== ENCOUNTER 2019-08-14 05:36 | Inpatient (IN) ==
[2019-08-14] MEDS ORDERED: Famotidine 20 MG/2 ML VIAL IVP PRN (05:44)
[2019-08-14] MEDS ORDERED: Naloxone 0.4 MG/ML INJ IVP PRN (05:44)
[2019-08-14] MEDS ORDERED: Metoclopramide 10 MG/2 ML VIAL IVP PRN (05:44)
[2019-08-14] MEDS ORDERED: Ringers Solution, Lactated 1,000 ML IVC SCH (05:45)
[2019-08-14] MEDS ORDERED: CeFAZolin Syr 3,000MG/30 ML 3,000 MG/30 ML SYRINGE IVPB ONE (05:48)
[2019-08-14 06:20] LABS: Basophils % 0.2 %; Eosinophils # 0.1 K/mcL (0.0-0.6); Hematocrit 37.2 % (35.3-44.9); Hemoglobin 12.2 g/dL (11.5-15.4); Immature Granulocytes % 1.6 % (0-4); Lymphocytes # 2.1 K/mcL (0.6-4.6); Lymphocytes % 13.9 %; Mean Corpuscular HGB Conc 32.8 g/dL (31.6-35.5); Mean Corpuscular Volume 91.6 fL (83.0-100.0); Monocytes # 0.9 K/mcL (0.0-1.3); Monocytes % 5.9 %; Neutrophils # 11.4 K/mcL (1.6-8.9); Platelet Count 170 K/mcL (140-400); Red Blood Count 4.06 M/mcL (3.82-4.97); Red Cell Distribution Width 15.4 % (11.5-14.5); Segmented Neutrophils % 77.4 %; White Blood Count 14.7 K/mcL (4.3-11.1)
[2019-08-14] MEDS ORDERED: Acetaminophen 325 MG TABLET PO ONE (07:26)
[2019-08-14] MEDS: miSOPROStoL 25 MCG TABLET PO PRN ×2 (07:40→11:51)
[2019-08-14 07:49] LABS: Alanine Aminotransferase 13 Units/L (7-52); Aspartate Amino Transferase 24 Units/L (13-39); BUN/Creatinine Ratio 15 (6-26); Blood Urea Nitrogen 8 mg/dL (6-20); Lactate Dehydrogenase 215 Units/L (140-271); Uric Acid 5.7 mg/dL (2.3-7.6); eGFR For African Americans > 60 (> 60); eGFR For Non-African Americans > 60 (> 60)
[2019-08-14] MEDS: Acetaminophen 325 MG TABLET PO PRN ×2 (08:59→17:48)
[2019-08-14 09:01] LABS: Amphetamine Screen,Urine Negative ng/mL (Cutoff=1000); Barbiturate Screen,Urine Negative ng/mL (Cutoff=200); Benzodiazepines Screen,Urine Negative ng/mL (Cutoff=200); Cannabinoid Screen,Urine Negative ng/mL (Cutoff = 50); Cocaine Screen,Urine Negative ng/mL (Cutoff= 300); Creatinine,Urine 130 mg/dL; Opiate Screen,Urine Negative ng/mL (Cutoff=300); Phencyclidine Screen,Urine Negative ng/mL (Cutoff=25); Protein/Creatinine Ratio,Urine 0.29 mg/mg (0.00-0.20)
[2019-08-14] MEDS: Ondansetron 4 MG/2 ML VIAL IVP PRN ×2 (13:21→21:42)
[2019-08-14] MEDS ORDERED: Oxytocin 20 units/ LR 1000 mL 20 UNIT/1,000 ML BAG IVC SCH (16:45)
[2019-08-14] MEDS ORDERED: Lidocaine 1% 20 ML MDV INFILT PRN (22:15)
[2019-08-14] MEDS ORDERED: *HR* FentaNYL (PF) 100 MCG/2 ML VIAL IVP PRN (22:15)
[2019-08-14] MEDS ORDERED: *HR* FentaNYL (PF) 100 MCG/2 ML VIAL ONE (22:21)
[2019-08-15] MEDS ORDERED: Ondansetron ODT 4 MG TAB.RAPDIS SL PRN (04:08)
[2019-08-15] MEDS: Ondansetron 4 MG/2 ML VIAL IVP PRN ×3 (04:42→16:27)
[2019-08-15] MEDS ORDERED: EPHEDrine 50 MG/ML VIAL IVP PRN (06:29)
[2019-08-15] MEDS ORDERED: *HR* FentaNYL (PF) 100 MCG/2 ML VIAL EP ONE (06:29)
[2019-08-15] MEDS ORDERED: Bupivacaine-MPF 0.25% 10 ML VIAL EP ONE (06:29)
[2019-08-15] MEDS ORDERED: Epidural Premix (fent/bupiv) 110 ML EP SCH (06:30)
[2019-08-15] MEDS ORDERED: Epidural Premix (fent/bupiv) 110 ML EP ONE (06:39)
[2019-08-15] MEDS ORDERED: 0.9 % Sodium Chloride 1,000 ML ONE (10:30)
[2019-08-15] MEDS: D5% in Lactated Ringers 1,000 ML IVC SCH ×2 (10:47→19:22)
[2019-08-15] MEDS ORDERED: Ropivacaine/PF 0.2% 20 ML VIAL ONE (14:58)
[2019-08-15] MEDS ORDERED: *HR* FentaNYL (PF) 100 MCG/2 ML VIAL ONE ×2 (14:59→20:58)
[2019-08-15] MEDS ORDERED: Lidocaine/EPI 1:200k 2% PF 20 ML VIAL ONE (14:59)
[2019-08-15] MEDS: Acetaminophen 325 MG TABLET PO PRN (16:26)
[2019-08-15] MEDS ORDERED: CeFAZolin 2,000 MG/50 ML BAG IVPB ONE (20:16)
[2019-08-15] MEDS ORDERED: Metoclopramide 10 MG/2 ML VIAL IVP ONE (20:16)
[2019-08-15] MEDS ORDERED: Oxytocin 20 units/ LR 1000 mL 20 UNIT/1,000 ML BAG IVC ONE (20:16)
[2019-08-15] MEDS ORDERED: Famotidine 20 MG/2 ML VIAL IVP ONE (20:16)
[2019-08-15] MEDS ORDERED: *HR* Morphine Sulfate/PF 10 MG/10 ML AMPUL ONE (20:58)
[2019-08-15] MEDS ORDERED: EPHEDrine 50 MG/ML VIAL ONE (20:58)
[2019-08-15] MEDS ORDERED: Ondansetron 4 MG/2 ML VIAL ONE ×2 (20:58→23:53)
[2019-08-15] MEDS ORDERED: *HR* Oxytocin 10 UNIT/ML VIAL IM ONE ×2 (20:58→23:53)
[2019-08-15] MEDS ORDERED: Chloroprocaine/PF 20 ML VIAL INFILT ONE (21:01)
[2019-08-15] MEDS ORDERED: Neostigmine Methylsulfate 3 MG/3 ML SYRINGE ONE (21:01)
[2019-08-15] MEDS ORDERED: *HR* HYDROmorphone (PF) 1 MG/ML SYRINGE IVP PRN (23:17)
[2019-08-15] MEDS ORDERED: Acetaminophen IV 1,000 MG/100 ML INFUS..BTL IVPB ONE (23:17)
[2019-08-16] MEDS ORDERED: Naloxone 0.4 MG/ML INJ ONE (00:10)
[2019-08-16] MEDS ORDERED: *HR* Promethazine 25 MG/ML VIAL ONE (00:58)
[2019-08-16] MEDS ORDERED: Ringers Solution, Lactated 1,000 ML ONE ×2 (01:10)
[2019-08-16] MEDS ORDERED: Ketamine *HR* 500 MG/10 ML MDV ONE (01:39)
[2019-08-16] MEDS ORDERED: Acetaminophen IV 1,000 MG/100 ML INFUS..BTL ONE (01:48)
[2019-08-16] MEDS: Acetaminophen 325 MG TABLET PO PRN (06:29)
[2019-08-16] MEDS ORDERED: Acetaminophen 325 MG TABLET PO PRN (09:29)
[2019-08-16] MEDS: Prenatal Vit/FA 1 EACH TABLET PO SCH (09:33)
[2019-08-16] MEDS: *HR* OxyCODONE/APAP 10/325 TABLET PO PRN ×3 (10:45→18:53)
[2019-08-16] MEDS: Loratadine 10 MG TABLET PO SCH (10:46)
[2019-08-16] MEDS: Ibuprofen 600 MG TABLET PO PRN ×2 (14:23→20:33)
[2019-08-17] MEDS: *HR* OxyCODONE/APAP 10/325 TABLET PO PRN ×2 (06:36→11:43)
[2019-08-17 09:04] VITALS: BP 121/88
[2019-08-17] MEDS: Loratadine 10 MG TABLET PO SCH (09:04)
[2019-08-17] MEDS: Prenatal Vit/FA 1 EACH TABLET PO SCH (09:05)
[2019-08-17] MEDS: Ibuprofen 600 MG TABLET PO PRN (11:43)
== END 2019-08-17 17:40 | disposition home or self-care (01) | DRG 539 ==
LOC: 1NENULAB 05:36 → 1NENUOBS 08-16 04:32
PROVIDERS: ADMIT Obstetrics & Gynecology; ATTEND Obstetrics & Gynecology